=== PATIENT | male | born 1965 | race Caucasian/White ===

== ENCOUNTER 2016-08-30 10:47 | Outpatient (CLI) | payer OTHER ==
[2016-08-30 12:31] LABS: T4 7.1 ug/dL (4.87-11.72); Thyroid Stimulating Hormone 0.0171 uIU/mL (0.35-4.94); Vitamin D, 25 Hydroxy 49.6 ng/mL (> 30.0)
[2016-09-01 15:27] LABS: Testosterone, Free 661.8 pg/mL (47-244)
[2016-09-01 18:15] LABS: Albumin (w/Testosterone Panel) 4.4 g/dL
[2016-09-01 18:30] LABS: Testosterone, Total 789.8 ng/dL (240-871)
[2016-09-01 18:32] LABS: Sex Hormone Binding Globulin 31.7 nmol/L (11-78)
== END 2016-08-30 10:48 | disposition home or self-care (01) ==
LOC: MADLAB 10:47
PROVIDERS: ATTEND Otolaryngology
DX: E55.9 Vitamin D deficiency, unspecified (principal); E03.9 Hypothyroidism, unspecified; E53.8 Deficiency of other specified B group vitamins; E29.1 Testicular hypofunction
CPT/HCPCS: 36415; 82306; 82607; 84270; 84403; 84436; 84443; 84481

== ENCOUNTER 2016-11-25 19:49 | Outpatient (CLI) | payer OTHER ==
[2016-11-25 21:42] LABS: T4 5.6 ug/dL (4.87-11.72)
== END 2016-11-25 19:50 | disposition home or self-care (01) ==
LOC: MADLAB 19:49
PROVIDERS: ATTEND Otolaryngology
DX: E03.9 Hypothyroidism, unspecified (principal); E53.8 Deficiency of other specified B group vitamins; E55.9 Vitamin D deficiency, unspecified
CPT/HCPCS: 36415; 82306; 82607; 84436; 84443; 84481

== ENCOUNTER 2016-12-27 11:04 | Outpatient (CLI) | payer OTHER ==
[2016-12-27 12:48] LABS: Cardiac Risk 3.9 (Less than 4.5)
[2016-12-28 16:04] LABS: Ferritin 116.41 ng/mL (22-322)
[2016-12-28 16:05] LABS: Hep C IgG Ab Non-Reactive (NonReactive); Hep C Index 0.12 S/CO (0-0.79)
== END 2016-12-27 11:05 | disposition home or self-care (01) ==
LOC: MADLAB 11:04
PROVIDERS: ATTEND Internal Medicine
DX: E11.9 Type 2 diabetes mellitus without complications (principal); E78.01 Familial hypercholesterolemia; D64.9 Anemia, unspecified; Z79.899 Other long term (current) drug therapy
CPT/HCPCS: 36415; 80061; 82728; 83036; 83540; 83550; 86803

== ENCOUNTER 2017-02-15 10:09 | Outpatient (CLI) | payer OTHER ==
[2017-02-15 15:28] LABS: Thyroid Stimulating Hormone 0.0106 uIU/mL (0.35-4.94); Vitamin D, 25 Hydroxy 49.2 ng/ml (> 30.0)
[2017-02-16 17:11] LABS: Albumin (w/Testosterone Panel) 4.5 g/dL
[2017-02-16 17:35] LABS: T4 5.7 ug/dL (4.87-11.72)
[2017-02-16 17:37] LABS: Testosterone, Total 223.1 ng/dL (240-871)
[2017-02-16 17:42] LABS: Sex Hormone Binding Globulin 33.5 nmol/L (11-78); Testosterone, Free 41.5 pg/mL (47-244)
== END 2017-02-15 10:10 | disposition home or self-care (01) ==
LOC: MADLAB 10:09
PROVIDERS: ATTEND Otolaryngology
DX: E03.9 Hypothyroidism, unspecified (principal); E53.8 Deficiency of other specified B group vitamins; E55.9 Vitamin D deficiency, unspecified; E29.1 Testicular hypofunction
CPT/HCPCS: 36415; 82306; 82607; 84270; 84403; 84436; 84443; 84481

== ENCOUNTER 2017-08-16 09:09 | Outpatient (CLI) | payer OTHER ==
[2017-08-16 15:17] LABS: T4 6.6 ug/dL (4.87-11.72); Vitamin D, 25 Hydroxy 31.5 ng/ml (> 30.0)
[2017-08-16 22:37] LABS: Thyroid Stimulating Hormone 0.0288 uIU/mL (0.35-4.94)
== END 2017-08-16 09:10 | disposition home or self-care (01) ==
LOC: MADLAB 09:09
PROVIDERS: ATTEND Otolaryngology
DX: E03.9 Hypothyroidism, unspecified (principal); E55.9 Vitamin D deficiency, unspecified; E53.8 Deficiency of other specified B group vitamins
CPT/HCPCS: 36415; 82306; 82607; 84436; 84443; 84481

== ENCOUNTER 2018-10-09 08:47 | Emergency (ER) | payer OTHER ==
[2018-10-09] MEDS ORDERED: Triamcinolone 40 MG/ML VIAL ONE (09:37)
== END 2018-10-09 09:55 | disposition home or self-care (01) ==
LOC: MADERS 08:47
DX: L25.9 Unspecified contact dermatitis, unspecified cause (principal); E03.9 Hypothyroidism, unspecified; K21.9 Gastro-esophageal reflux disease without esophagitis; E78.5 Hyperlipidemia, unspecified; Z79.899 Other long term (current) drug therapy
CPT/HCPCS: 96372; J3301

== ENCOUNTER 2020-07-22 11:14 | Outpatient (CLI) | payer OTHER ==
[2020-07-22 12:08] LABS: ALT (SGPT) 20 U/L (8-55); AST (SGOT) 17 U/L (5-34); Albumin 4.6 g/dL (3.5-5.0); Alkaline Phosphatase 73 U/L (40-110); Anion Gap 17 mmol/L (10-20); BUN (Urea Nitrogen) 9 mg/dL (8.4-25.7); Bilirubin, Direct 0.2 mg/dL (0.1-0.3); Bilirubin, Total 0.6 mg/dL (0.2-1.2); Calc. Creatinine Clearance 0 mL/min (70-130); Carbon Dioxide 25 mmol/L (22-29); Cardiac Risk 3.2 (Less than 4.5); Chloride 105 mmol/L (98-107); Cholesterol 200 mg/dl (< 200 Desired); Glucose 91 mg/dL (70-105); HDL Cholesterol 62 mg/dL (>60 Neg Risk); LDL Cholesterol, Calculated 122 mg/dL; Potassium 3.9 mmol/L (3.5-5.1); Protein, Total 7.3 g/dL (6.0-8.3); Sodium 143 mmol/L (136-145); Triglycerides 80 mg/dL (Less than 150)
[2020-07-22 12:54] LABS: #Basophils 0.1 thou/uL (0.0-0.2); #Eosinphils 0.2 thou/uL (0.0-0.7); #Lymphocytes 2.1 thou/uL (1.20-3.40); #Monocytes 0.5 thou/uL (0.11-0.59); #Neutrophils 3.2 thou/uL (1.40-6.50); %Basophils 1.6 % (0.0-1.0); %Eosinophils 3.2 % (0.0-10.0); %Lymphocytes 34.8 % (21.0-51.0); %Monocytes 7.9 % (0.0-10.0); %Neutrophils 52.4 % (42.0-75.0); Hemoglobin 15.5 g/dL (14.0-18.0); Large Platelets SLIGHT; MDiff Complete? YES; Mean Corpuscular HGB CONC 33.8 g/dL (32.0-36.0); Mean Corpuscular Hemoglobin 29.6 pg (27.0-31.0); Mean Corpuscular Volume 87.7 fL (78.0-98.0); Mean Platelet Volume 12.1 fL (7.4-10.4); Platelet Count 158 thou/uL (130-400); Platelet Morphology Comment Appears Adequate; RBC Morphology Normal; Red Blood Cell (RBC) Count 5.24 mill/uL (4.70-6.10); White Blood Cell (WBC) Count 6.1 thou/uL (4.8-10.8)
[2020-07-22 13:06] LABS: Thyroid Stimulating Hormone 4.2643 uIU/mL (0.35-4.94)
[2020-07-23 11:16] LABS: Hemoglobin A1c 5.2 % (4.0-6.0)
[2020-07-23 11:42] LABS: Ferritin 194.83 ng/mL (22-322); Free T4 (Free Thyroxine) 0.98 ng/dL (0.70-1.48)
[2020-07-23 11:43] LABS: PSA-Asymptomatic (SCREENING) 1.78 ng/mL (0-4.0); Vitamin D, 25 Hydroxy 36.3 ng/ml (> 30.0)
== END 2020-07-22 11:15 | disposition home or self-care (01) ==
LOC: MADLAB 11:14
PROVIDERS: ATTEND Internal Medicine
DX: Z00.00 Encounter for general adult medical examination without abnormal findings (principal); Z12.5 Encounter for screening for malignant neoplasm of prostate; I10 Essential (primary) hypertension; D64.9 Anemia, unspecified; E78.00 Pure hypercholesterolemia, unspecified; E03.9 Hypothyroidism, unspecified; E55.9 Vitamin D deficiency, unspecified; E53.8 Deficiency of other specified B group vitamins; E11.9 Type 2 diabetes mellitus without complications
CPT/HCPCS: 36415; 80048; 80061; 80076; 82306; 82607; 82728; 83036; 83540; 84439; 84443; 85025; G0103

== ENCOUNTER 2021-06-10 06:16 | Outpatient (CLI) | payer OTHER | END 2021-06-10 06:17 | disposition home or self-care (01) | LOC: MADLAB 06:16 | PROVIDERS: ATTEND Internal Medicine | DX: E03.9 Hypothyroidism, unspecified (principal); N52.01 Erectile dysfunction due to arterial insufficiency | CPT/HCPCS: 36415; 84403; 84439; 84443 ==

== ENCOUNTER 2025-06-03 09:48 | Outpatient (CLI) | payer OTHER ==
[2025-06-03 10:40] LABS: ALT (SGPT) 30 U/L (Less than 45); AST (SGOT) 23 U/L (11-34); Albumin 4.7 g/dL (3.1-4.5); Alkaline Phosphatase 55 U/L (40-110); Anion Gap 15 mmol/L (10-20); BUN (Urea Nitrogen) 18 mg/dL (8.4-25.7); Bilirubin, Total 0.7 mg/dL (0.3-1.2); Calc. Creatinine Clearance 0 mL/min (70-130); Calcium 9.1 mg/dL (7.8-10.44); Carbon Dioxide 25 mmol/L (22-29); Cardiac Risk 3.1 (Less than 4.5); Chloride 107 mmol/L (98-107); Cholesterol 169 mg/dl (< 200 Desired); Globulin 2.7 g/dL (2.4-3.5); Glucose 92 mg/dL (70-105); HDL Cholesterol 55 mg/dL (>60 Neg Risk); LDL Cholesterol, Calculated 105 mg/dL; Sodium 143 mmol/L (136-145); Triglycerides 47 mg/dL (Less than 150)
[2025-06-03 11:20] LABS: Thyroid Stimulating Hormone 2.3285 uIU/mL (0.35-4.94)
[2025-06-03 11:43] LABS: #Basophils 0.1 thou/uL (0.0-0.2); #Eosinophils 0.2 thou/uL (0.0-0.7); #Lymphocytes 2.0 thou/uL (1.20-3.40); #Monocytes 0.5 thou/uL (0.11-0.59); #Neutrophils 2.3 thou/uL (1.40-6.50); %Basophils 2.2 % (0.0-1.0); %Eosinophils 3.2 % (0.0-10.0); %Lymphocytes 39.5 % (21.0-51.0); %Monocytes 9.1 % (0.0-10.0); %Neutrophils 46.0 % (42.0-75.0); Hematocrit 47.8 % (42.0-52.0); Hemoglobin 15.9 g/dL (14.0-18.0); Mean Corpuscular Hemoglobin 29.7 pg (27.0-31.0); Mean Corpuscular Volume 89.0 fl (78.0-98.0); Platelet Adequacy Comment Appears Adequate; Platelet Count 148 10x3/uL (130-400); Red Blood Cell (RBC) Count 5.37 mill/uL (4.70-6.10); White Blood Cell (WBC) Count 4.9 10x3/uL (4.8-10.8)
[2025-06-03 12:56] LABS: Potassium 3.6 mmol/L (3.5-5.1)
[2025-06-04 12:26] LABS: Albumin (w/Testosterone Panel) 4.6 g/dL
[2025-06-04 12:54] LABS: Testosterone, Free 14.4 pg/mL (47-244)
[2025-06-04 12:57] LABS: PSA-Asymptomatic (SCREENING) 0.514 ng/mL (0-4.0); Vitamin D, 25 Hydroxy 82.2 ng/ml (> 30.0)
[2025-06-04 13:00] LABS: Free T4 (Free Thyroxine) 1.09 ng/dL (0.70-1.48); Vitamin B12 853.0 pg/mL (211-911)
== END 2025-06-03 09:49 | disposition home or self-care (01) ==
LOC: MADLAB 09:48
PROVIDERS: ATTEND Family Medicine
DX: Z13.6 Encounter for screening for cardiovascular disorders (principal); Z12.5 Encounter for screening for malignant neoplasm of prostate; E03.9 Hypothyroidism, unspecified; E55.9 Vitamin D deficiency, unspecified; R53.83 Other fatigue; R73.01 Impaired fasting glucose; R79.89 Other specified abnormal findings of blood chemistry; Z79.899 Other long term (current) drug therapy
CPT/HCPCS: 36415; 80053; 80061; 82306; 82607; 83036; 84270; 84403; 84439; 84443; 85025; G0103